=== PATIENT | male | born 1955 | race Caucasian/White ===

== ENCOUNTER 2018-08-29 18:04 | Inpatient (IN) | payer OTHER, MEDICAID ==
[~2018-08-29] VITALS: Ht 172.7 cm; Wt 80.9 kg
[~2018-08-29 18:04] MED LIST: ROCURONIUM BROMIDE 10 MG/ML 5 ML VIAL IV ONE
[2018-08-29] MEDS ORDERED: BACL10TA PO (18:27)
[2018-08-29] MEDS ORDERED: 0.9% SODIUM CHLORIDE 10 ML SYRINGE IVP PRN (18:30)
[2018-08-29] MEDS ORDERED: SODIUM CHLORIDE 0.9% 1,000 ML IV ONE ×3 (18:30→23:00)
[2018-08-29] MEDS ORDERED: LORazepam 2 MG/ML VIAL IVP ONE (18:30)
[2018-08-29 18:53] LABS: GLUCOSE,POINT OF CARE 147 MG/DL (70-110)
[2018-08-29 19:00] LABS: INR 0.9 (0.9-1.1); PROTHROMBIN TIME 9.8 SEC (9.4-11.6)
[2018-08-29 19:02] LABS: BASOPHILS % (AUTO) 0.5 % (0.0-2.0); HEMATOCRIT 47.6 % (41-53); HEMOGLOBIN 16.6 g/dL (13.5-17.5); LYMPHOCYTES # (AUTO) 2.7 K/uL (1.0-4.8); MEAN CORPUSCULAR HGB CONC 34.9 G/dL (31.0-37.0); MEAN CORPUSCULAR VOLUME 89 fL (80-100); MONOCYTES # (AUTO) 1.2 K/uL (0.1-1.0); MONOCYTES % (AUTO) 10.9 % (2.0-9.0); NEUTROPHILS # (AUTO) 6.7 K/uL (1.8-7.7); NEUTROPHILS % (AUTO) 62.6 % (40.0-70.0); PLATELET COUNT (AUTO) 280 K/uL (150-450); RED BLOOD CELL COUNT(AUTO) 5.35 MIL/uL (4.50-5.90); RED CELL DISTRIBUTION WIDTH 13.4 % (11.5-14.5)
[2018-08-29 19:10] LABS: ANION GAP 10 mmol/L (8-16); CALCIUM, TOTAL 8.8 mg/dL (8.8-10.5); CARBON DIOXIDE 30 mmol/L (22-29); CHLORIDE 103 mmol/L (98-107); GLOMERULAR FILTR. RATE CALC > 60 mL/min (>60); GLUCOSE,RANDOM 162 mg/dL (70-110); SODIUM SERUM 143 mmol/L (136-145); UREA NITROGEN, BLOOD 14 mg/dL (7-18)
[2018-08-29 19:17] LABS: AMMONIA 19 umol/L (11-32)
[2018-08-29 19:18] LABS: TROPONIN I < 0.02 ng/mL (0.00-0.05)
[2018-08-29 19:24] LABS: B-TYPE NATRIURETIC PEPTIDE 17 pg/mL (0-100)
[2018-08-29 19:25] LABS: APPEARANCE,URINE CLEAR (CLEAR); BILIRUBIN,URINE NEGATIVE (NEGATIVE); GLUCOSE, URINE (UA) NEGATIVE (NEGATIVE); KETONES,URINE NEGATIVE (NEGATIVE); LEUKOCYTE ESTERASE ,URINE NEGATIVE (NEGATIVE); NITRATE,URINE NEGATIVE (NEGATIVE); OCCULT BLOOD,URINE TRACE (NEGATIVE); PH,URINE 6.5 (5.0-8.0); PROTEIN,URINE TRACE (NEGATIVE); UROBILINOGEN,URINE 0.2 mg/dL (<=1.0)
[2018-08-29 19:32] LABS: AMPHET/METH SCREEN,URINE NEGATIVE (NEGATIVE); BARBITURATE SCREEN, URINE NEGATIVE (NEGATIVE); BENZODIAZEPINES SCREEN,URINE NEGATIVE (NEGATIVE); CANNABINOID SCREEN,URINE NEGATIVE (NEGATIVE); COCAINE SCREEN,URINE NEGATIVE (NEGATIVE); METHADONE SCREEN, URINE NEGATIVE (NEGATIVE); OPIATE SCREEN,URINE NEGATIVE (NEGATIVE)
[2018-08-29 19:33] LABS: PHENCYCLIDINE SCREEN,URINE NEGATIVE (NEGATIVE)
[2018-08-29 19:34] LABS: ALANINE AMINOTRANSFERASE 25 U/L (12-78); ALBUMIN 4.5 g/dL (3.4-5.0); ALKALINE PHOSPHATASE 82 U/L (46-116); BILIRUBIN,TOTAL 0.6 mg/dL (0.1-1.0); CREATINE KINASE, TOTAL ONLY 116 U/L (39-308); TOTAL PROTEIN, SERUM 8.3 g/dL (6.4-8.2)
[2018-08-29 19:40] LABS: BACTERIA,URINE None Seen /HPF (None Seen); RBC,URINE 0-2 /HPF (0-2); SQUAMOUS EPITHELIAL CELL,UR Few /LPF (None Seen); WBC,URINE 0-2 /HPF (0-5)
[2018-08-29 19:51] LABS: SALICYLATE < 2.8 mg/dL (2.8-20.0)
[2018-08-29 19:52] LABS: ACETAMINOPHEN < 2 mcg/mL (10-30)
[2018-08-29 19:58] LABS: LACTIC ACID 2.9 mmol/L (0.4-2.0)
[2018-08-29] MEDS ORDERED: SODIUM CHLORIDE 0.9% 2,650 ML IV ONE (19:58)
[2018-08-29 20:00] LABS: ASPARTATE AMINOTRANSFERASE 27 U/L (15-37)
[2018-08-29] MEDS ORDERED: ONDANSETRON HCL 4 MG/2 ML VIAL IVP PRN ×2 (20:45→21:15)
[2018-08-29] MEDS ORDERED: ACETAMINOPHEN 325 MG TABLET PO PRN (20:45)
[2018-08-29] MEDS ORDERED: IPRATROPIUM BROMIDE 0.5 MG/2.5 ML NEB SOLUTION NEB PRN (21:15)
[2018-08-29] MEDS ORDERED: BISACODYL 10 MG RECTAL RECTAL SUPPOSITORY PR PRN (21:15)
[2018-08-29] MEDS ORDERED: ALBUTEROL SULFATE 2.5 MG/0.5 ML NEB SOLUTION NEB PRN (21:15)
[2018-08-29] MEDS ORDERED: ZOLPIDEM TARTRATE 5 MG TABLET PO PRN (21:15)
[2018-08-29 21:31] LABS: SOURCE, BLOOD GAS ARTERIAL
[2018-08-29 21:37] LABS: ABG METHEMOGLOBIN 0.3 % (0.0-1.5)
[2018-08-29 21:51] LABS: ABG A-A DIFF O2 12.4 mmHg (10-20.0); ABG BASE EXCESS -4.1 mmol/L (-2.0-3.0); ABG CARBOXYHEMOGLOBIN 0.2 % (0.0-1.5); ABG HCO3 21.5 mmol/L (22.0-26.0); ABG OXYGEN CONTENT 21.5 mL/dL (15.0-23.0); ABG OXYGEN SATURATION 98.7 % (95.0-98.0); ABG OXYHEMOGLOBIN 98.2 % (94.0-100.0); ABG PCO2 38 mmHg (35-45); ABG TOTAL HEMOGLOBIN 15.4 G/dL (12.0-18.0); PO2, ARTERIAL BG 143.4 mmHg (79.0-87.0); TEMPERATURE, FAHRENHEIT, BG 97.7 FAHREN (96.0-98.6)
[2018-08-29 21:52] LABS: O2 DEVICE,BLOOD GAS CANNULA (ROOM AIR); SITE, BLOOD GAS RT RADIAL
[2018-08-29] MEDS ORDERED: SUCCINYLCHOLINE CHLORIDE 20 MG/ML 10 ML VIAL ONE (22:04)
[2018-08-29] MEDS ORDERED: RAPID SEQUENCE KIT [RSI] 1 EACH KIT ONE (22:04)
[2018-08-29] MEDS ORDERED: ROCURONIUM BROMIDE 10 MG/ML 5 ML VIAL IVP ONE (22:05)
[2018-08-29] MEDS ORDERED: ROCURONIUM BROMIDE 10 MG/ML 5 ML VIAL ONE (22:07)
[2018-08-29] MEDS ORDERED: PROPOFOL 1000 MG/ISO-OSM 100 ML IV PRN (23:45)
[2018-08-30] MEDS ORDERED: FentaNYL CITRATE-PF 100 MCG/2 ML VIAL IVP ONE
[2018-08-30 00:08] LABS: ABG A-A DIFF O2 61.9 mmHg (10-20.0); ABG BASE EXCESS -4.6 mmol/L (-2.0-3.0); ABG CARBOXYHEMOGLOBIN 0.4 % (0.0-1.5); ABG HCO3 20.8 mmol/L (22.0-26.0); ABG METHEMOGLOBIN 0.1 % (0.0-1.5); ABG OXYGEN CONTENT 20.8 mL/dL (15.0-23.0); ABG OXYGEN SATURATION 97.5 % (95.0-98.0); ABG PCO2 42 mmHg (35-45); ABG PH 7.325 (7.35-7.450); ABG TOTAL HEMOGLOBIN 15.2 G/dL (12.0-18.0); PO2, ARTERIAL BG 103.2 mmHg (79.0-87.0); SOURCE, BLOOD GAS ARTERIAL
[2018-08-30 00:09] LABS: O2 DEVICE,BLOOD GAS VENTILATOR (ROOM AIR); SITE, BLOOD GAS RT RADIAL; VT, ABG 550 ml
[2018-08-30 00:10] LABS: PEEP,BG 5 cm H2O
[2018-08-30 07:47] LABS: BASOPHILS % (AUTO) 0.5 % (0.0-2.0); EOSINOPHILS % (AUTO) 0.4 % (1.0-6.0); HEMATOCRIT 42.5 % (41-53); LYMPHOCYTES # (AUTO) 1.2 K/uL (1.0-4.8); LYMPHOCYTES % (AUTO) 12.6 % (22.0-44.0); MEAN CORPUSCULAR HEMOGLOBIN 31.1 pg (26.0-34.0); MEAN CORPUSCULAR HGB CONC 35.3 G/dL (31.0-37.0); MEAN CORPUSCULAR VOLUME 88 fL (80-100); MONOCYTES % (AUTO) 10.7 % (2.0-9.0); NEUTROPHILS # (AUTO) 7.1 K/uL (1.8-7.7); NEUTROPHILS % (AUTO) 75.8 % (40.0-70.0); PLATELET COUNT (AUTO) 188 K/uL (150-450); RED BLOOD CELL COUNT(AUTO) 4.82 MIL/uL (4.50-5.90); RED CELL DISTRIBUTION WIDTH 13.4 % (11.5-14.5)
[2018-08-30 07:53] LABS: GLUCOSE,POINT OF CARE 113 MG/DL (70-110)
[2018-08-30 07:54] LABS: ANION GAP 4 mmol/L (8-16); CARBON DIOXIDE 29 mmol/L (22-29); CHLORIDE 109 mmol/L (98-107); CREATININE 0.83 mg/dL (0.60-1.30); GLOMERULAR FILTR. RATE CALC > 60 mL/min (>60); GLUCOSE,RANDOM 115 mg/dL (70-110); SODIUM SERUM 142 mmol/L (136-145); UREA NITROGEN, BLOOD 9 mg/dL (7-18)
[2018-08-30 08:00] LABS: ALANINE AMINOTRANSFERASE 19 U/L (12-78); ALBUMIN 3.5 g/dL (3.4-5.0); ALKALINE PHOSPHATASE 71 U/L (46-116); ASPARTATE AMINOTRANSFERASE 17 U/L (15-37); BILIRUBIN,TOTAL 0.6 mg/dL (0.1-1.0); TOTAL PROTEIN, SERUM 6.7 g/dL (6.4-8.2)
[2018-08-30 08:05] LABS: LACTIC ACID 2.8 mmol/L (0.4-2.0)
[2018-08-30 08:07] LABS: B-TYPE NATRIURETIC PEPTIDE 22 pg/mL (0-100)
[2018-08-30 08:18] LABS: ABG A-A DIFF O2 64.9 mmHg (10-20.0); ABG BASE EXCESS -1.4 mmol/L (-2.0-3.0); ABG CARBOXYHEMOGLOBIN 0.5 % (0.0-1.5); ABG HCO3 23.4 mmol/L (22.0-26.0); ABG METHEMOGLOBIN 0.3 % (0.0-1.5); ABG OXYGEN CONTENT 19.7 mL/dL (15.0-23.0); ABG OXYGEN SATURATION 97.5 % (95.0-98.0); ABG OXYHEMOGLOBIN 96.7 % (94.0-100.0); ABG PCO2 41 mmHg (35-45); ABG PH 7.381 (7.35-7.450); ABG TOTAL HEMOGLOBIN 14.4 G/dL (12.0-18.0); SOURCE, BLOOD GAS ARTERIAL; TEMPERATURE, FAHRENHEIT, BG 98.4 FAHREN (96.0-98.6)
[2018-08-30 08:20] LABS: O2 DEVICE,BLOOD GAS VENTILATOR (ROOM AIR); PEEP,BG 5 cm H2O; SITE, BLOOD GAS LFT RADIAL; SPONTANEOUS VT, BG 535 ml; VT, ABG 550 ml
[2018-08-30] MEDS: PANTOPRAZOLE SODIUM 40 MG DR TABLET PO SCH (08:32)
[2018-08-30] MEDS ORDERED: SODIUM CHLORIDE 0.9% 1,000 ML IV ONE ×2 (09:45)
[2018-08-30] MEDS ORDERED: DOPamine HCL 400 MG/D5%-WATER 250 ML IV PRN (11:55)
[2018-08-30] MEDS: PROPOFOL 1000 MG/ISO-OSM 100 ML IV PRN ×2 (12:32→23:57)
[2018-08-30 16:00] VITALS: BP 141/75
[2018-08-30 17:53] LABS: THYROID STIMULATING HORMONE 1.71 uIU/mL (0.36-3.74)
[2018-08-30 20:00] VITALS: BP 105/65
[2018-08-31] VITALS (8 sets, daily range): BP systolic 102–190; BP diastolic 65–97
[2018-08-31 04:37] LABS: BASOPHILS % (AUTO) 0.5 % (0.0-2.0); EOSINOPHILS % (AUTO) 0.7 % (1.0-6.0); HEMOGLOBIN 13.4 g/dL (13.5-17.5); LYMPHOCYTES # (AUTO) 1.3 K/uL (1.0-4.8); LYMPHOCYTES % (AUTO) 17.9 % (22.0-44.0); MEAN CORPUSCULAR HGB CONC 35.1 G/dL (31.0-37.0); MEAN CORPUSCULAR VOLUME 88 fL (80-100); MONOCYTES # (AUTO) 0.6 K/uL (0.1-1.0); MONOCYTES % (AUTO) 8.5 % (2.0-9.0); NEUTROPHILS # (AUTO) 5.3 K/uL (1.8-7.7); NEUTROPHILS % (AUTO) 72.4 % (40.0-70.0); PLATELET COUNT (AUTO) 161 K/uL (150-450); RED BLOOD CELL COUNT(AUTO) 4.31 MIL/uL (4.50-5.90); RED CELL DISTRIBUTION WIDTH 13.5 % (11.5-14.5)
[2018-08-31 04:48] LABS: ANION GAP 6 mmol/L (8-16); CALCIUM, TOTAL 8.4 mg/dL (8.8-10.5); CARBON DIOXIDE 28 mmol/L (22-29); CHLORIDE 112 mmol/L (98-107); CREATININE 0.71 mg/dL (0.60-1.30); GLOMERULAR FILTR. RATE CALC > 60 mL/min (>60); GLUCOSE,RANDOM 112 mg/dL (70-110); POTASSIUM 3.7 mmol/L (3.5-5.1); SODIUM SERUM 146 mmol/L (136-145); UREA NITROGEN, BLOOD 10 mg/dL (7-18)
[2018-08-31] MEDS: PROPOFOL 1000 MG/ISO-OSM 100 ML IV PRN ×2 (08:37→12:42)
[2018-08-31] MEDS: PANTOPRAZOLE SODIUM 40 MG DR TABLET PO SCH (09:33)
[2018-08-31] MEDS ORDERED: SODIUM CHLORIDE 0.45% 1,000 ML IV ONE (12:00)
[2018-08-31 12:18] LABS: ANION GAP 6 mmol/L (8-16); CALCIUM, TOTAL 8.7 mg/dL (8.8-10.5); CARBON DIOXIDE 29 mmol/L (22-29); CHLORIDE 110 mmol/L (98-107); CREATININE 0.61 mg/dL (0.60-1.30); GLOMERULAR FILTR. RATE CALC > 60 mL/min (>60); GLUCOSE,RANDOM 101 mg/dL (70-110); POTASSIUM 3.5 mmol/L (3.5-5.1); SODIUM SERUM 145 mmol/L (136-145); UREA NITROGEN, BLOOD 9 mg/dL (7-18)
[2018-08-31 12:32] LABS: ALKALINE PHOSPHATASE 72 U/L (46-116)
[2018-08-31] MEDS: METOPROLOL TARTRATE 25 MG TABLET PO SCH ×2 (12:41→21:12)
[2018-08-31] MEDS: MORPHINE SULFATE 4 MG/ML SYRINGE IVP PRN (12:42)
[2018-08-31] MEDS: DEXTROSE 5%-0.45% SODIUM CHL 1,000 ML IV SCH (12:43)
[2018-08-31] MEDS ORDERED: PANTOPRAZOLE SODIUM 40 MG/VIAL IVP ONE (12:45)
[2018-08-31] MEDS: ACETAMINOPHEN 325 MG TABLET PO PRN ×3 (14:28→23:08)
[2018-08-31] MEDS: POTASSIUM CHL 10 MEQ/WATER 50 ML IV SCH ×4 (14:30→18:45)
[2018-08-31] MEDS: HEPARIN SODIUM,PORCINE 5,000 UNITS/ML VIAL SQ SCH ×2 (16:30→21:12)
[2018-08-31] MEDS: LORazepam 2 MG/ML VIAL IVP PRN (16:36)
[2018-08-31] MEDS ORDERED: SODIUM CHLORIDE 0.9% 250 ML IV ONE ×2 (18:11→23:19)
[2018-08-31 20:50] LABS: POTASSIUM 4.3 mmol/L (3.5-5.1)
[2018-09-01] VITALS: BP 112/66
[2018-09-01] MEDS: PROPOFOL 1000 MG/ISO-OSM 100 ML IV PRN ×6 (00:36→21:33)
[2018-09-01] MEDS: DEXTROSE 5%-0.45% SODIUM CHL 1,000 ML IV SCH ×2 (02:53→15:56)
[2018-09-01 04:00] VITALS: BP 135/75
[2018-09-01 04:44] LABS: BASOPHILS % (AUTO) 0.6 % (0.0-2.0); EOSINOPHILS % (AUTO) 0.3 % (1.0-6.0); HEMATOCRIT 41.6 % (41-53); HEMOGLOBIN 14.6 g/dL (13.5-17.5); LYMPHOCYTES # (AUTO) 1.2 K/uL (1.0-4.8); LYMPHOCYTES % (AUTO) 10.6 % (22.0-44.0); MEAN CORPUSCULAR HEMOGLOBIN 30.8 pg (26.0-34.0); MEAN CORPUSCULAR HGB CONC 35.1 G/dL (31.0-37.0); MEAN CORPUSCULAR VOLUME 88 fL (80-100); MONOCYTES # (AUTO) 1.1 K/uL (0.1-1.0); MONOCYTES % (AUTO) 10.1 % (2.0-9.0); NEUTROPHILS # (AUTO) 8.5 K/uL (1.8-7.7); NEUTROPHILS % (AUTO) 78.4 % (40.0-70.0); PLATELET COUNT (AUTO) 163 K/uL (150-450); RED BLOOD CELL COUNT(AUTO) 4.73 MIL/uL (4.50-5.90); RED CELL DISTRIBUTION WIDTH 13.6 % (11.5-14.5)
[2018-09-01 04:59] LABS: ANION GAP 6 mmol/L (8-16); CALCIUM, TOTAL 8.2 mg/dL (8.8-10.5); CARBON DIOXIDE 29 mmol/L (22-29); CHLORIDE 107 mmol/L (98-107); CREATININE 0.69 mg/dL (0.60-1.30); GLOMERULAR FILTR. RATE CALC > 60 mL/min (>60); GLUCOSE,RANDOM 127 mg/dL (70-110); POTASSIUM 3.4 mmol/L (3.5-5.1); SODIUM SERUM 142 mmol/L (136-145); UREA NITROGEN, BLOOD 7 mg/dL (7-18)
[2018-09-01] MEDS: HEPARIN SODIUM,PORCINE 5,000 UNITS/ML VIAL SQ SCH ×3 (07:58→21:32)
[2018-09-01] MEDS: METOPROLOL TARTRATE 25 MG TABLET PO SCH ×3 (07:59→21:32)
[2018-09-01] MEDS: ACETAMINOPHEN 325 MG TABLET PO PRN ×2 (07:59→18:10)
[2018-09-01 08:00] VITALS: BP 138/84
[2018-09-01] MEDS ORDERED: MAGNESIUM GLUCONATE 1 GM/5 ML LIQUID 22 ML UDCUP NG PRN (10:30)
[2018-09-01] MEDS ORDERED: POTASSIUM CHLORIDE 20 MEQ ER TABLET PO PRN ×3 (10:30→12:30)
[2018-09-01] MEDS ORDERED: MAGNESIUM SULFATE 2 GM/WATER 50 ML IV PRN (10:30)
[2018-09-01] MEDS ORDERED: MAGNESIUM SULFATE 4 GM/WATER 100 ML IV PRN (10:30)
[2018-09-01] MEDS ORDERED: POTASSIUM CHLORIDE 10% 40 MEQ/30 ML LIQUID UDCUP NG PRN ×2 (10:30)
[2018-09-01] MEDS ORDERED: POTASSIUM CHL 10 MEQ/WATER 50 ML IV PRN ×4 (10:30→12:30)
[2018-09-01] MEDS: LORazepam 2 MG/ML VIAL IVP PRN (10:55)
[2018-09-01] MEDS: MAGNESIUM OXIDE 400 MG TABLET PO PRN ×2 (10:55→17:01)
[2018-09-01] MEDS: POTASSIUM CHL 10 MEQ/WATER 50 ML IV PRN ×3 (10:55→12:09)
[2018-09-01 12:00] VITALS: BP 167/93
[2018-09-01 16:00] VITALS: BP 108/71
[2018-09-01 16:39] LABS: MAGNESIUM 1.8 mg/dL (1.80-2.40); POTASSIUM 3.5 mmol/L (3.5-5.1)
[2018-09-01 20:00] VITALS: BP 150/97
[2018-09-02] VITALS (9 sets, daily range): BP systolic 87–202; BP diastolic 54–108
[2018-09-02] MEDS: PROPOFOL 1000 MG/ISO-OSM 100 ML IV PRN ×6 (00:35→23:26)
[2018-09-02 05:22] LABS: POTASSIUM 3.7 mmol/L (3.5-5.1)
[2018-09-02] MEDS: DEXTROSE 5%-0.45% SODIUM CHL 1,000 ML IV SCH ×2 (08:01→21:32)
[2018-09-02] MEDS ORDERED: SODIUM CHLORIDE 0.9% 250 ML IV ONE (08:04)
[2018-09-02 08:05] LABS: BASOPHILS % (AUTO) 0.4 % (0.0-2.0); EOSINOPHILS % (AUTO) 0.7 % (1.0-6.0); HEMATOCRIT 38.8 % (41-53); HEMOGLOBIN 13.3 g/dL (13.5-17.5); MEAN CORPUSCULAR HEMOGLOBIN 30.6 pg (26.0-34.0); MEAN CORPUSCULAR HGB CONC 34.4 G/dL (31.0-37.0); MEAN CORPUSCULAR VOLUME 89 fL (80-100); MONOCYTES # (AUTO) 0.8 K/uL (0.1-1.0); MONOCYTES % (AUTO) 9.9 % (2.0-9.0); NEUTROPHILS # (AUTO) 6.5 K/uL (1.8-7.7); PLATELET COUNT (AUTO) 162 K/uL (150-450); RED BLOOD CELL COUNT(AUTO) 4.35 MIL/uL (4.50-5.90); RED CELL DISTRIBUTION WIDTH 13.4 % (11.5-14.5)
[2018-09-02 08:21] LABS: ALANINE AMINOTRANSFERASE 11 U/L (12-78); ALBUMIN 2.8 g/dL (3.4-5.0); ALKALINE PHOSPHATASE 57 U/L (46-116); ANION GAP 12 mmol/L (8-16); ASPARTATE AMINOTRANSFERASE 20 U/L (15-37); BILIRUBIN,TOTAL 0.6 mg/dL (0.1-1.0); CALCIUM, TOTAL 8.3 mg/dL (8.8-10.5); CARBON DIOXIDE 23 mmol/L (22-29); CHLORIDE 108 mmol/L (98-107); CREATININE 0.89 mg/dL (0.60-1.30); GLOMERULAR FILTR. RATE CALC > 60 mL/min (>60); GLUCOSE,RANDOM 128 mg/dL (70-110); PHOSPHORUS 3.8 mg/dL (2.5-4.9); SODIUM SERUM 143 mmol/L (136-145); TOTAL PROTEIN, SERUM 6.4 g/dL (6.4-8.2); UREA NITROGEN, BLOOD 9 mg/dL (7-18)
[2018-09-02] MEDS: HEPARIN SODIUM,PORCINE 5,000 UNITS/ML VIAL SQ SCH ×3 (08:24→22:36)
[2018-09-02] MEDS: METOPROLOL TARTRATE 25 MG TABLET PO SCH ×3 (08:24→22:36)
[2018-09-02] MEDS: ACETAMINOPHEN 325 MG TABLET PO PRN ×2 (09:49→14:11)
[2018-09-02] MEDS: LORazepam 2 MG/ML VIAL IVP PRN ×2 (10:15→14:12)
[2018-09-02] MEDS: MORPHINE SULFATE 4 MG/ML SYRINGE IVP PRN (11:43)
[2018-09-02] MEDS ORDERED: DOCUSATE SODIUM 100 MG CAPSULE PO PRN (15:00)
[2018-09-02] MEDS: VANCOMYCIN HCL 750 MG in DEXTROSE 5%-WATER 250 ML IV SCH (15:29)
[2018-09-02] MEDS: CLINDAMYCIN 600 MG/D5% WATER 50 ML IV SCH ×2 (17:09→23:28)
[2018-09-03] VITALS (10 sets, daily range): BP systolic 100–166; BP diastolic 60–85
[2018-09-03] MEDS: VANCOMYCIN HCL 750 MG in DEXTROSE 5%-WATER 250 ML IV SCH ×2 (00:50→07:38)
[2018-09-03] MEDS: PROPOFOL 1000 MG/ISO-OSM 100 ML IV PRN ×5 (04:12→20:23)
[2018-09-03 04:38] LABS: BASOPHILS % (AUTO) 0.5 % (0.0-2.0); EOSINOPHILS % (AUTO) 1.3 % (1.0-6.0); HEMATOCRIT 37.2 % (41-53); LYMPHOCYTES # (AUTO) 0.7 K/uL (1.0-4.8); LYMPHOCYTES % (AUTO) 10.2 % (22.0-44.0); MEAN CORPUSCULAR HEMOGLOBIN 30.5 pg (26.0-34.0); MEAN CORPUSCULAR HGB CONC 34.9 G/dL (31.0-37.0); MEAN CORPUSCULAR VOLUME 87 fL (80-100); MONOCYTES # (AUTO) 0.7 K/uL (0.1-1.0); MONOCYTES % (AUTO) 9.6 % (2.0-9.0); NEUTROPHILS # (AUTO) 5.7 K/uL (1.8-7.7); NEUTROPHILS % (AUTO) 78.4 % (40.0-70.0); PLATELET COUNT (AUTO) 156 K/uL (150-450); RED BLOOD CELL COUNT(AUTO) 4.25 MIL/uL (4.50-5.90); RED CELL DISTRIBUTION WIDTH 13.1 % (11.5-14.5)
[2018-09-03 05:01] LABS: CALCIUM, TOTAL 8.3 mg/dL (8.8-10.5); CHLORIDE 107 mmol/L (98-107); CREATININE 0.49 mg/dL (0.60-1.30); GLOMERULAR FILTR. RATE CALC > 60 mL/min (>60); GLUCOSE,RANDOM 124 mg/dL (70-110); POTASSIUM 3.3 mmol/L (3.5-5.1); SODIUM SERUM 141 mmol/L (136-145); UREA NITROGEN, BLOOD 10 mg/dL (7-18); VANCOMYCIN,RANDOM 12.7 mcg/mL (25.0-50.0)
[2018-09-03 05:07] LABS: ANION GAP 8 mmol/L (8-16); CARBON DIOXIDE 26 mmol/L (22-29)
[2018-09-03] MEDS: CLINDAMYCIN 600 MG/D5% WATER 50 ML IV SCH (07:05)
[2018-09-03] MEDS: HEPARIN SODIUM,PORCINE 5,000 UNITS/ML VIAL SQ SCH ×3 (07:42→20:12)
[2018-09-03] MEDS: DOCUSATE SODIUM 100 MG CAPSULE PO SCH ×2 (07:42→20:12)
[2018-09-03] MEDS: METOPROLOL TARTRATE 25 MG TABLET PO SCH ×3 (07:43→20:12)
[2018-09-03] MEDS: POTASSIUM CHL 10 MEQ/WATER 50 ML IV PRN ×3 (09:22→10:53)
[2018-09-03] MEDS: MORPHINE SULFATE 4 MG/ML SYRINGE IVP PRN ×2 (09:42→22:07)
[2018-09-03] MEDS: ACETAMINOPHEN 325 MG TABLET PO PRN ×2 (11:12→16:52)
[2018-09-03] MEDS ORDERED: *CLINICAL-LEVOFLOXACIN IVPB DOSING CLINICAL ONE (11:15)
[2018-09-03] MEDS ORDERED: SODIUM CHLORIDE 0.9% 250 ML IV ONE (11:57)
[2018-09-03] MEDS: LEVOFLOXACIN 750 MG/D5% WATER 150 ML IV SCH (12:08)
[2018-09-03] MEDS: LORazepam 2 MG/ML VIAL IVP PRN ×2 (12:33→19:28)
[2018-09-03] MEDS ORDERED: VANCOMYCIN HCL 1.25 GM in DEXTROSE 5%-WATER 250 ML IV SCH (16:00)
[2018-09-03] MEDS: MAGNESIUM HYDROXIDE SUSPENSION 30 ML UDCUP PO PRN (20:12)
[2018-09-04] VITALS (8 sets, daily range): BP systolic 90–183; BP diastolic 56–104
[2018-09-04] MEDS: PROPOFOL 1000 MG/ISO-OSM 100 ML IV PRN ×3 (01:02→22:56)
[2018-09-04] MEDS: LORazepam 2 MG/ML VIAL IVP PRN ×4 (01:38→17:51)
[2018-09-04] MEDS: MORPHINE SULFATE 4 MG/ML SYRINGE IVP PRN ×3 (04:01→19:29)
[2018-09-04] MEDS ORDERED: SODIUM CHLORIDE 0.9% 250 ML IV ONE ×2 (04:32→22:50)
[2018-09-04 04:44] LABS: BASOPHILS % (AUTO) 0.4 % (0.0-2.0); EOSINOPHILS % (AUTO) 1.9 % (1.0-6.0); HEMATOCRIT 35.5 % (41-53); HEMOGLOBIN 12.1 g/dL (13.5-17.5); LYMPHOCYTES # (AUTO) 0.7 K/uL (1.0-4.8); LYMPHOCYTES % (AUTO) 11.5 % (22.0-44.0); MEAN CORPUSCULAR HEMOGLOBIN 30.1 pg (26.0-34.0); MEAN CORPUSCULAR HGB CONC 34.1 G/dL (31.0-37.0); MEAN CORPUSCULAR VOLUME 88 fL (80-100); MONOCYTES # (AUTO) 0.6 K/uL (0.1-1.0); MONOCYTES % (AUTO) 10.7 % (2.0-9.0); NEUTROPHILS # (AUTO) 4.5 K/uL (1.8-7.7); NEUTROPHILS % (AUTO) 75.5 % (40.0-70.0); PLATELET COUNT (AUTO) 164 K/uL (150-450); RED BLOOD CELL COUNT(AUTO) 4.02 MIL/uL (4.50-5.90); RED CELL DISTRIBUTION WIDTH 13.3 % (11.5-14.5)
[2018-09-04 05:10] LABS: ANION GAP 6 mmol/L (8-16); CALCIUM, TOTAL 8.5 mg/dL (8.8-10.5); CARBON DIOXIDE 29 mmol/L (22-29); CHLORIDE 107 mmol/L (98-107); CREATININE 0.58 mg/dL (0.60-1.30); GLOMERULAR FILTR. RATE CALC > 60 mL/min (>60); GLUCOSE,RANDOM 128 mg/dL (70-110); POTASSIUM 3.9 mmol/L (3.5-5.1); SODIUM SERUM 142 mmol/L (136-145); UREA NITROGEN, BLOOD 14 mg/dL (7-18); VANCOMYCIN,RANDOM 2.5 mcg/mL (25.0-50.0)
[2018-09-04] MEDS: METOPROLOL TARTRATE 25 MG TABLET PO SCH ×3 (09:00→20:37)
[2018-09-04] MEDS: DOCUSATE SODIUM 100 MG CAPSULE PO SCH ×2 (09:01→20:35)
[2018-09-04] MEDS: HEPARIN SODIUM,PORCINE 5,000 UNITS/ML VIAL SQ SCH ×3 (09:01→20:36)
[2018-09-04] MEDS: LEVOFLOXACIN 750 MG/D5% WATER 150 ML IV SCH (12:47)
[2018-09-04 14:21] LABS: ABG A-A DIFF O2 83.7 mmHg (10-20.0); ABG BASE EXCESS 1.4 mmol/L (-2.0-3.0); ABG CARBOXYHEMOGLOBIN 0.2 % (0.0-1.5); ABG HCO3 25.9 mmol/L (22.0-26.0); ABG METHEMOGLOBIN 0.3 % (0.0-1.5); ABG OXYGEN CONTENT 18.1 mL/dL (15.0-23.0); ABG OXYGEN SATURATION 95.8 % (95.0-98.0); ABG OXYHEMOGLOBIN 95.3 % (94.0-100.0); ABG PCO2 38 mmHg (35-45); ABG PH 7.443 (7.35-7.450); ABG TOTAL HEMOGLOBIN 13.5 G/dL (12.0-18.0); PO2, ARTERIAL BG 84.6 mmHg (79.0-87.0); SOURCE, BLOOD GAS ARTERIAL; TEMPERATURE, FAHRENHEIT, BG 100.4 FAHREN (96.0-98.6)
[2018-09-04 14:22] LABS: O2 DEVICE,BLOOD GAS VENTILATOR (ROOM AIR); PEEP,BG 0 cm H2O; SITE, BLOOD GAS RT RADIAL; SPONTANEOUS VT, BG 520 ml; VENT MODE, BG SPONTANEOUS (ROOM AIR)
[2018-09-04] MEDS: ACETAMINOPHEN 325 MG TABLET PO PRN ×2 (17:50→20:36)
[2018-09-04] MEDS: MAGNESIUM HYDROXIDE SUSPENSION 30 ML UDCUP PO PRN (20:36)
[2018-09-05] VITALS (7 sets, daily range): BP systolic 103–191; BP diastolic 68–110
[2018-09-05 05:38] LABS: ANION GAP 9 mmol/L (8-16); CALCIUM, TOTAL 8.8 mg/dL (8.8-10.5); CARBON DIOXIDE 28 mmol/L (22-29); CHLORIDE 106 mmol/L (98-107); CREATININE 0.63 mg/dL (0.60-1.30); GLOMERULAR FILTR. RATE CALC > 60 mL/min (>60); GLUCOSE,RANDOM 115 mg/dL (70-110); POTASSIUM 3.6 mmol/L (3.5-5.1); SODIUM SERUM 143 mmol/L (136-145); UREA NITROGEN, BLOOD 18 mg/dL (7-18)
[2018-09-05] MEDS: DOCUSATE SODIUM 100 MG CAPSULE PO SCH ×2 (07:57→20:15)
[2018-09-05] MEDS: HEPARIN SODIUM,PORCINE 5,000 UNITS/ML VIAL SQ SCH ×3 (07:57→20:15)
[2018-09-05] MEDS: METOPROLOL TARTRATE 25 MG TABLET PO SCH ×3 (07:57→20:15)
[2018-09-05] MEDS: LORazepam 2 MG/ML VIAL IVP PRN ×4 (08:15→20:40)
[2018-09-05] MEDS: MORPHINE SULFATE 4 MG/ML SYRINGE IVP PRN (09:45)
[2018-09-05 10:25] LABS: ABG CARBOXYHEMOGLOBIN 0.8 % (0.0-1.5); ABG HCO3 25.5 mmol/L (22.0-26.0); ABG METHEMOGLOBIN 0.3 % (0.0-1.5); ABG OXYGEN SATURATION 94.7 % (95.0-98.0); ABG OXYHEMOGLOBIN 93.7 % (94.0-100.0); ABG PCO2 38 mmHg (35-45); ABG PH 7.443 (7.35-7.450); ABG TOTAL HEMOGLOBIN 13.6 G/dL (12.0-18.0); PO2, ARTERIAL BG 75.7 mmHg (79.0-87.0); SOURCE, BLOOD GAS ARTERIAL; TEMPERATURE, FAHRENHEIT, BG 98.6 FAHREN (96.0-98.6)
[2018-09-05 10:28] LABS: O2 DEVICE,BLOOD GAS VENTILATOR (ROOM AIR); PEEP,BG 0 cm H2O; PRESSURE SUPPORT, BG 8 cm H2O; SITE, BLOOD GAS RT RADIAL; VENT MODE, BG SPONTANEOUS (ROOM AIR)
[2018-09-05] MEDS: LEVOFLOXACIN 750 MG/D5% WATER 150 ML IV SCH (11:32)
[2018-09-05] MEDS ORDERED: HydrALAZINE HCL 20 MG/ML VIAL IVP PRN (12:00)
[2018-09-05] MEDS ORDERED: SODIUM CHLORIDE 0.9% 1,000 ML IV SCH (14:15)
[2018-09-05] MEDS: ACETAMINOPHEN 650 MG RECTAL SUPPOSITORY PR PRN ×2 (16:42→23:38)
[2018-09-05] MEDS: METOPROLOL TARTRATE 5 MG/5 ML VIAL IVP SCH ×2 (17:20→23:37)
[2018-09-05] MEDS ORDERED: DIGOXIN 250 MCG/ML 2 ML AMP IVP ONE (20:00)
[2018-09-05] MEDS ORDERED: DILTIAZEM HCL 125 MG in DEXTROSE 5%-WATER 100 ML IV SCH (20:00)
[2018-09-06] VITALS: BP 150/78
[2018-09-06 04:00] VITALS: BP 161/93
[2018-09-06 05:05] LABS: ANION GAP 9 mmol/L (8-16); CARBON DIOXIDE 27 mmol/L (22-29); CHLORIDE 103 mmol/L (98-107); CREATININE 0.57 mg/dL (0.60-1.30); GLOMERULAR FILTR. RATE CALC > 60 mL/min (>60); GLUCOSE,RANDOM 140 mg/dL (70-110); POTASSIUM 3.7 mmol/L (3.5-5.1); SODIUM SERUM 139 mmol/L (136-145); UREA NITROGEN, BLOOD 13 mg/dL (7-18)
[2018-09-06] MEDS: LORazepam 2 MG/ML VIAL IVP PRN ×3 (05:26→20:43)
[2018-09-06] MEDS: METOPROLOL TARTRATE 5 MG/5 ML VIAL IVP SCH (05:27)
[2018-09-06] MEDS ORDERED: DIGOXIN 250 MCG/ML 2 ML AMP IVP SCH (07:00)
[2018-09-06] MEDS ORDERED: AMIODARONE HCL 150 MG in DEXTROSE 5%-WATER 97 ML IV ONE (07:00)
[2018-09-06] MEDS ORDERED: AMIODARONE HCL 360 MG in DEXTROSE 5%-WATER 242.8 ML IV ONE (07:00)
[2018-09-06 08:00] VITALS: BP 142/102
[2018-09-06] MEDS: METOPROLOL TARTRATE 25 MG TABLET PO SCH ×3 (09:10→20:46)
[2018-09-06] MEDS: AmLODIPine BESYLATE 10 MG TABLET PO SCH (09:10)
[2018-09-06] MEDS: DOCUSATE SODIUM 100 MG CAPSULE PO SCH ×2 (09:10→20:44)
[2018-09-06] MEDS: HEPARIN SODIUM,PORCINE 5,000 UNITS/ML VIAL SQ SCH ×3 (09:13→20:43)
[2018-09-06] MEDS ORDERED: HEPARIN SODIUM,PORCINE 5,000 UNITS/ML VIAL SQ SCH (09:30)
[2018-09-06] MEDS: LEVOFLOXACIN 750 MG/D5% WATER 150 ML IV SCH (11:21)
[2018-09-06 12:00] VITALS: BP 139/84
[2018-09-06] MEDS ORDERED: AMIODARONE HCL 540 MG in DEXTROSE 5%-WATER 239.2 ML IV ONE (13:00)
[2018-09-06] MEDS ORDERED: SODIUM CHLORIDE 0.9% 250 ML IV ONE (15:51)
[2018-09-06 16:00] VITALS: BP 115/73
[2018-09-06 20:00] VITALS: BP 140/78
[2018-09-07] VITALS (7 sets, daily range): BP systolic 95–138; BP diastolic 64–82
[2018-09-07 05:10] LABS: ANION GAP 6 mmol/L (8-16); CARBON DIOXIDE 30 mmol/L (22-29); CHLORIDE 104 mmol/L (98-107); CREATININE 0.73 mg/dL (0.60-1.30); GLOMERULAR FILTR. RATE CALC > 60 mL/min (>60); GLUCOSE,RANDOM 121 mg/dL (70-110); POTASSIUM 3.5 mmol/L (3.5-5.1); SODIUM SERUM 140 mmol/L (136-145); UREA NITROGEN, BLOOD 16 mg/dL (7-18)
[2018-09-07] MEDS ORDERED: SODIUM CHLORIDE 0.9% 250 ML IV ONE (05:50)
[2018-09-07] MEDS ORDERED: AMIODARONE HCL 750 MG in DEXTROSE 5%-WATER 485 ML IV SCH (06:58)
[2018-09-07] MEDS: POTASSIUM CHL 10 MEQ/WATER 50 ML IV PRN ×3 (07:32→08:54)
[2018-09-07] MEDS: DOCUSATE SODIUM 100 MG CAPSULE PO SCH ×2 (08:15→20:43)
[2018-09-07] MEDS: HEPARIN SODIUM,PORCINE 5,000 UNITS/ML VIAL SQ SCH ×3 (08:15→20:43)
[2018-09-07] MEDS: ASPIRIN 81 MG EC TABLET PO SCH (08:15)
[2018-09-07] MEDS: AmLODIPine BESYLATE 10 MG TABLET PO SCH (08:15)
[2018-09-07] MEDS: METOPROLOL TARTRATE 25 MG TABLET PO SCH ×3 (08:55→20:43)
[2018-09-07] MEDS: LEVOFLOXACIN 750 MG/D5% WATER 150 ML IV SCH (12:28)
[2018-09-08 03:47] VITALS: BP 113/72
[2018-09-08] MEDS: HEPARIN SODIUM,PORCINE 5,000 UNITS/ML VIAL SQ SCH ×3 (08:39→21:31)
[2018-09-08] MEDS: METOPROLOL TARTRATE 25 MG TABLET PO SCH ×3 (08:39→21:31)
[2018-09-08] MEDS: AmLODIPine BESYLATE 10 MG TABLET PO SCH (08:39)
[2018-09-08] MEDS: DOCUSATE SODIUM 100 MG CAPSULE PO SCH ×2 (08:40→21:31)
[2018-09-08] MEDS: ASPIRIN 81 MG EC TABLET PO SCH (08:40)
[2018-09-08] MEDS: ACETAMINOPHEN 325 MG TABLET PO PRN (08:41)
[2018-09-08 08:47] VITALS: BP 129/84
[2018-09-08 12:25] VITALS: BP 111/76
[2018-09-08] MEDS ORDERED: SODIUM CHLORIDE 0.9% 250 ML IV ONE (12:38)
[2018-09-08] MEDS: LEVOFLOXACIN 750 MG/D5% WATER 150 ML IV SCH (13:52)
[2018-09-08 16:00] VITALS: BP 120/72
[2018-09-08 19:31] VITALS: BP 123/66
[2018-09-09] VITALS (7 sets, daily range): BP systolic 107–153; BP diastolic 62–84
[2018-09-09 07:18] LABS: BASOPHILS % (AUTO) 0.5 % (0.0-2.0); EOSINOPHILS % (AUTO) 2.7 % (1.0-6.0); HEMATOCRIT 39.2 % (41-53); HEMOGLOBIN 13.6 g/dL (13.5-17.5); LYMPHOCYTES # (AUTO) 1.2 K/uL (1.0-4.8); LYMPHOCYTES % (AUTO) 17.6 % (22.0-44.0); MEAN CORPUSCULAR HEMOGLOBIN 30.4 pg (26.0-34.0); MEAN CORPUSCULAR HGB CONC 34.8 G/dL (31.0-37.0); MEAN CORPUSCULAR VOLUME 87 fL (80-100); MONOCYTES # (AUTO) 0.9 K/uL (0.1-1.0); MONOCYTES % (AUTO) 13.5 % (2.0-9.0); NEUTROPHILS # (AUTO) 4.3 K/uL (1.8-7.7); NEUTROPHILS % (AUTO) 65.7 % (40.0-70.0); PLATELET COUNT (AUTO) 281 K/uL (150-450); RED BLOOD CELL COUNT(AUTO) 4.49 MIL/uL (4.50-5.90); RED CELL DISTRIBUTION WIDTH 13.1 % (11.5-14.5)
[2018-09-09 07:33] LABS: ANION GAP 10 mmol/L (8-16); CALCIUM, TOTAL 9.2 mg/dL (8.8-10.5); CARBON DIOXIDE 24 mmol/L (22-29); CHLORIDE 103 mmol/L (98-107); CREATININE 0.73 mg/dL (0.60-1.30); GLOMERULAR FILTR. RATE CALC > 60 mL/min (>60); GLUCOSE,RANDOM 111 mg/dL (70-110); POTASSIUM 3.7 mmol/L (3.5-5.1); SODIUM SERUM 137 mmol/L (136-145); UREA NITROGEN, BLOOD 16 mg/dL (7-18)
[2018-09-09] MEDS: AmLODIPine BESYLATE 10 MG TABLET PO SCH (08:05)
[2018-09-09] MEDS: ACETAMINOPHEN 325 MG TABLET PO PRN ×2 (08:05→19:59)
[2018-09-09] MEDS: METOPROLOL TARTRATE 25 MG TABLET PO SCH ×3 (08:06→20:01)
[2018-09-09] MEDS: ASPIRIN 81 MG EC TABLET PO SCH (08:06)
[2018-09-09] MEDS: HEPARIN SODIUM,PORCINE 5,000 UNITS/ML VIAL SQ SCH ×3 (08:06→20:00)
[2018-09-09] MEDS: DOCUSATE SODIUM 100 MG CAPSULE PO SCH ×2 (08:06→20:01)
[2018-09-09] MEDS: LEVOFLOXACIN 750 MG/D5% WATER 150 ML IV SCH (12:06)
[2018-09-10 03:48] VITALS: BP 101/57
[2018-09-10] MEDS: ACETAMINOPHEN 325 MG TABLET PO PRN ×2 (05:05→20:15)
[2018-09-10 07:17] LABS: BASOPHILS % (AUTO) 0.5 % (0.0-2.0); EOSINOPHILS % (AUTO) 2.3 % (1.0-6.0); HEMATOCRIT 38.8 % (41-53); HEMOGLOBIN 13.4 g/dL (13.5-17.5); LYMPHOCYTES # (AUTO) 1.3 K/uL (1.0-4.8); LYMPHOCYTES % (AUTO) 18.5 % (22.0-44.0); MEAN CORPUSCULAR HGB CONC 34.6 G/dL (31.0-37.0); MEAN CORPUSCULAR VOLUME 87 fL (80-100); MONOCYTES # (AUTO) 0.8 K/uL (0.1-1.0); MONOCYTES % (AUTO) 12.1 % (2.0-9.0); NEUTROPHILS # (AUTO) 4.5 K/uL (1.8-7.7); NEUTROPHILS % (AUTO) 66.6 % (40.0-70.0); PLATELET COUNT (AUTO) 307 K/uL (150-450); RED BLOOD CELL COUNT(AUTO) 4.46 MIL/uL (4.50-5.90)
[2018-09-10 07:57] LABS: ALANINE AMINOTRANSFERASE 28 U/L (12-78); ALBUMIN 2.9 g/dL (3.4-5.0); ALKALINE PHOSPHATASE 54 U/L (46-116); ANION GAP 8 mmol/L (8-16); ASPARTATE AMINOTRANSFERASE 20 U/L (15-37); BILIRUBIN,TOTAL 0.5 mg/dL (0.1-1.0); CALCIUM, TOTAL 8.5 mg/dL (8.8-10.5); CARBON DIOXIDE 25 mmol/L (22-29); CHLORIDE 103 mmol/L (98-107); CREATININE 0.68 mg/dL (0.60-1.30); GLOMERULAR FILTR. RATE CALC > 60 mL/min (>60); GLUCOSE,RANDOM 102 mg/dL (70-110); POTASSIUM 3.7 mmol/L (3.5-5.1); SODIUM SERUM 136 mmol/L (136-145); TOTAL PROTEIN, SERUM 6.6 g/dL (6.4-8.2); UREA NITROGEN, BLOOD 15 mg/dL (7-18)
[2018-09-10] MEDS: METOPROLOL TARTRATE 25 MG TABLET PO SCH ×3 (09:00→20:17)
[2018-09-10] MEDS: HEPARIN SODIUM,PORCINE 5,000 UNITS/ML VIAL SQ SCH ×3 (09:52→20:14)
[2018-09-10] MEDS: ASPIRIN 81 MG EC TABLET PO SCH (09:52)
[2018-09-10] MEDS: DOCUSATE SODIUM 100 MG CAPSULE PO SCH ×2 (09:52→20:14)
[2018-09-10 11:34] VITALS: BP 130/77
[2018-09-10] MEDS: AmLODIPine BESYLATE 10 MG TABLET PO SCH (12:05)
[2018-09-10 16:17] VITALS: BP 143/72
[2018-09-10 19:30] VITALS: BP 119/64
[2018-09-10 23:05] VITALS: BP 121/68
[2018-09-11 04:20] VITALS: BP 110/64
[2018-09-11 07:08] VITALS: BP 120/62
[2018-09-11 08:34] LABS: BASOPHILS % (AUTO) 0.6 % (0.0-2.0); EOSINOPHILS % (AUTO) 2.9 % (1.0-6.0); HEMATOCRIT 39.3 % (41-53); HEMOGLOBIN 13.7 g/dL (13.5-17.5); LYMPHOCYTES # (AUTO) 1.2 K/uL (1.0-4.8); LYMPHOCYTES % (AUTO) 19.6 % (22.0-44.0); MEAN CORPUSCULAR HEMOGLOBIN 29.9 pg (26.0-34.0); MEAN CORPUSCULAR HGB CONC 34.9 G/dL (31.0-37.0); MEAN CORPUSCULAR VOLUME 86 fL (80-100); MONOCYTES # (AUTO) 0.7 K/uL (0.1-1.0); MONOCYTES % (AUTO) 10.6 % (2.0-9.0); NEUTROPHILS # (AUTO) 4.2 K/uL (1.8-7.7); NEUTROPHILS % (AUTO) 66.3 % (40.0-70.0); PLATELET COUNT (AUTO) 345 K/uL (150-450); RED BLOOD CELL COUNT(AUTO) 4.58 MIL/uL (4.50-5.90); RED CELL DISTRIBUTION WIDTH 13.1 % (11.5-14.5)
[2018-09-11 08:44] LABS: ALANINE AMINOTRANSFERASE 24 U/L (12-78); ALBUMIN 2.9 g/dL (3.4-5.0); ALKALINE PHOSPHATASE 56 U/L (46-116); ANION GAP 6 mmol/L (8-16); ASPARTATE AMINOTRANSFERASE 18 U/L (15-37); BILIRUBIN,TOTAL 0.4 mg/dL (0.1-1.0); CALCIUM, TOTAL 8.7 mg/dL (8.8-10.5); CARBON DIOXIDE 27 mmol/L (22-29); CHLORIDE 103 mmol/L (98-107); CREATININE 0.67 mg/dL (0.60-1.30); GLOMERULAR FILTR. RATE CALC > 60 mL/min (>60); GLUCOSE,RANDOM 94 mg/dL (70-110); POTASSIUM 3.9 mmol/L (3.5-5.1); SODIUM SERUM 136 mmol/L (136-145); TOTAL PROTEIN, SERUM 6.7 g/dL (6.4-8.2); UREA NITROGEN, BLOOD 16 mg/dL (7-18)
[2018-09-11] MEDS: DOCUSATE SODIUM 100 MG CAPSULE PO SCH ×2 (10:03→20:10)
[2018-09-11] MEDS: ASPIRIN 81 MG EC TABLET PO SCH (10:03)
[2018-09-11] MEDS: AmLODIPine BESYLATE 10 MG TABLET PO SCH (10:04)
[2018-09-11] MEDS: HEPARIN SODIUM,PORCINE 5,000 UNITS/ML VIAL SQ SCH ×3 (10:04→20:10)
[2018-09-11 11:57] VITALS: BP 128/65
[2018-09-11] MEDS: ACETAMINOPHEN 325 MG TABLET PO PRN (15:06)
[2018-09-11 15:45] VITALS: BP 124/76
[2018-09-11 19:11] VITALS: BP 133/71
[2018-09-11] MEDS: METOPROLOL TARTRATE 25 MG TABLET PO SCH (20:12)
[2018-09-11 23:39] VITALS: BP 126/68
[2018-09-12 04:02] VITALS: BP 118/64
[2018-09-12 07:22] VITALS: BP 125/75
[2018-09-12] MEDS: METOPROLOL TARTRATE 25 MG TABLET PO SCH (09:00)
[2018-09-12] MEDS: AmLODIPine BESYLATE 10 MG TABLET PO SCH (09:18)
[2018-09-12] MEDS: ASPIRIN 81 MG EC TABLET PO SCH (09:18)
[2018-09-12] MEDS: DOCUSATE SODIUM 100 MG CAPSULE PO SCH (09:19)
[2018-09-12] MEDS: HEPARIN SODIUM,PORCINE 5,000 UNITS/ML VIAL SQ SCH ×2 (09:19→16:00)
[2018-09-12 11:17] VITALS: BP 118/66
[2018-09-12] MEDS ORDERED: ASPI81 PO (15:35)
[2018-09-12] MEDS ORDERED: METO25 PO (15:35)
[2018-09-13] MEDS ORDERED: AmLODIPine BESYLATE 5 MG TABLET PO SCH (09:00)
== END 2018-09-12 16:10 | disposition home or self-care (01) | DRG 870 ==
LOC: EMS 18:07 → ICU 08-30 14:47 → 5S 09-07 18:30
PROVIDERS: ADMIT Internal Medicine; ATTEND Internal Medicine
PROC: 5A1955Z Respiratory Ventilation, Greater than 96 Consecutive Hours (ICD-10-PCS; principal; 2018-08-30)
PROC: 0BH17EZ Insertion of Endotracheal Airway into Trachea, Via Natural or Artificial Opening (ICD-10-PCS; 2018-08-30)
PROC: 02HV33Z Insertion of Infusion Device into Superior Vena Cava, Percutaneous Approach (ICD-10-PCS; 2018-08-30)
DX: A41.9 Sepsis, unspecified organism (principal); J96.00 Acute respiratory failure, unspecified whether with hypoxia or hypercapnia; J69.0 Pneumonitis due to inhalation of food and vomit; G92 Toxic encephalopathy; E43 Unspecified severe protein-calorie malnutrition; E87.2 Acidosis; I69.354 Hemiplegia and hemiparesis following cerebral infarction affecting left non-dominant side; Z99.11 Dependence on respirator [ventilator] status; F33.2 Major depressive disorder, recurrent severe without psychotic features; E78.5 Hyperlipidemia, unspecified; E87.6 Hypokalemia; F20.9 Schizophrenia, unspecified; I48.0 Paroxysmal atrial fibrillation; S63.91XA Sprain of unspecified part of right wrist and hand, initial encounter; X58.XXXA Exposure to other specified factors, initial encounter; T42.8X2A Poisoning by antiparkinsonism drugs and other central muscle-tone depressants, intentional self-harm, initial encounter; I95.9 Hypotension, unspecified; R00.1 Bradycardia, unspecified; R73.9 Hyperglycemia, unspecified; Z88.0 Allergy status to penicillin; Z79.82 Long term (current) use of aspirin; Y92.89 Other specified places as the place of occurrence of the external cause; Z87.891 Personal history of nicotine dependence; Z91.19 Patient's noncompliance with other medical treatment and regimen; Z91.5 Personal history of self-harm; Y93.89 Activity, other specified; Y99.8 Other external cause status; Z68.27 Body mass index [BMI] 27.0-27.9, adult
CPT/HCPCS: 31500; 36600; 51702; 82805; 83605; 83735; 84075; 84100; 84132; 84145; 84443; 87040; 87070; 87081; 87086; 87205; 92526; 92610; 93005; 93306; 94002; 94003; 96374; 96375; 97110; 97116; 97162; 97530; 99291; G0378; G0480; G0481; J0282; J0330; J0360; J1160; J1265; J1644; J1956; J2060; J2270; J2704; J3010; J3370; J3480; J3490; J7030; J7050; J7060